=== PATIENT | male | born 1995 | race African-American/Black ===

== ENCOUNTER 2019-06-10 02:23 | Emergency (ER) | payer OTHER ==
[~2019-06-10] VITALS: Ht 175.3 cm; Wt 66.0 kg
[2019-06-10] MEDS ORDERED: MORPHINE SULFATE 4 MG/ML CPJ (NOT FOR IM USE) IV ONE (03:15)
[2019-06-10] MEDS ORDERED: PROPOFOL 200MG/20ML VIAL IV ONE (03:15)
[2019-06-10] MEDS ORDERED: ONDANSETRON HCL 4MG/2ML INJ IV ONE (03:15)
[2019-06-10 05:15] VITALS: BP 136/82
== END 2019-06-10 05:52 | disposition home or self-care (01) ==
LOC: ER 02:23
DX: S43.085A Other dislocation of left shoulder joint, initial encounter (principal); F12.10 Cannabis abuse, uncomplicated; Y04.0XXA Assault by unarmed brawl or fight, initial encounter; Y93.89 Activity, other specified; Y92.018 Other place in single-family (private) house as the place of occurrence of the external cause
CPT/HCPCS: 23650; 73030; 96374; 96375; 99152; 99285; J2270; J2405; J2704; Z7610; A4565; L3670